=== PATIENT | male | born 1995 | race Caucasian/White ===

== ENCOUNTER 2017-09-10 05:40 | Emergency (ER) | payer OTHER ==
[~2017-09-10] VITALS: Ht 154.9 cm; Wt 63.5 kg
[2017-09-10 05:58] LABS: ABSOLUTE NEUTROPHILS 5.5 thou/uL (1.4-8.2); BASOPHILS 0.6 % (0.0-2.0); EOSINOPHILS 5.9 % (0.0-3.0); HEMATOCRIT 36.1 % (42.0-52.0); HEMOGLOBIN 12.7 gm/dL (14.0-18.0); LYMPHOCYTES 34.6 % (24.0-44.0); MCH 31.7 pg (26.0-34.0); MCHC 35.2 g/dL (28.0-37.0); MCV 90.3 fL (80.0-100.0); MONOCYTES 9.9 % (1.0-8.0); PLATELET COUNT 244 thou/uL (150-400); WBC 11.3 thou/uL (4.0-11.0)
[2017-09-10] MEDS ORDERED: NOHOMEMEDICATIONS (06:00)
[2017-09-10 06:06] LABS: CALCIUM 8.6 mg/dL (8.5-10.1); CREATININE 0.7 mg/dL (0.7-1.3); POTASSIUM 3.9 mmol/L (3.5-5.1)
[2017-09-10 06:10] LABS: PROTIME 10.3 Seconds (9.3-11.4)
[2017-09-10 06:12] LABS: ALBUMIN 3.5 g/dL (3.4-5.0); TOTAL BILIRUBIN 0.5 mg/dL (<0.1-1.0); TOTAL PROTEIN 6.7 g/dL (6.4-8.2)
[2017-09-10] MEDS ORDERED: PROTONIX40 MG PO ×2 (06:43→06:45)
[2017-09-10] MEDS ORDERED: ZANTAC 150MG T150 MG PO ×2 (06:43→06:45)
[2017-09-10] MEDS ORDERED: ONDANSETRON HCL4 M2 PO ×2 (06:44→06:45)
[2017-09-10] MEDS ORDERED: CARAFATE 1 GM TA1 GM PO (07:19)
[2017-09-10 07:29] VITALS: BP 107/64
== END 2017-09-10 07:29 | disposition home or self-care (01) ==
LOC: EDBD 05:40 → ER 05:40
PROVIDERS: Emergency Medicine
DX: K29.71 Gastritis, unspecified, with bleeding (principal)

== ENCOUNTER 2018-06-14 18:08 | Inpatient (IN) | payer OTHER ==
[~2018-06-14] VITALS: Ht 152.4 cm; Wt 73.4 kg
[~2018-06-14 18:08] MED LIST: CARAFATE 1 GM TA1 GM PO; NOHOMEMEDICATIONS; ONDANSETRON HCL4 M2 PO; PROTONIX40 MG PO; ZANTAC 150MG T150 MG PO
[2018-06-14 18:10] VITALS: BP 123/76
[2018-06-14 19:07] LABS: ABSOLUTE NEUTROPHILS 6.5 thou/uL (1.4-8.2); BASOPHILS 0.4 % (0.0-2.0); EOSINOPHILS 1.6 % (0.0-3.0); LYMPHOCYTES 28.4 % (24.0-44.0); MCH 32.1 pg (26.0-34.0); MCHC 35.1 g/dL (28.0-37.0); MCV 91.2 fL (80.0-100.0); MONOCYTES 8.2 % (1.0-8.0); PLATELET COUNT 236 thou/uL (150-400); POLYS 61.4 % (36.0-66.0); RBC 1.91 mil/uL (4.50-6.00); RDW 12.7 % (10.5-14.5); WBC 10.6 thou/uL (4.0-11.0)
[2018-06-14 19:09] LABS: HEMOGLOBIN 6.1 gm/dL (14.0-18.0)
[2018-06-14 19:11] LABS: HEMATOCRIT 17.5 % (42.0-52.0)
[2018-06-14 19:13] LABS: CALCIUM 8.2 mg/dL (8.5-10.1); CREATININE 0.7 mg/dL (0.7-1.3); POTASSIUM 3.9 mmol/L (3.5-5.1)
[2018-06-14 19:18] LABS: TOTAL BILIRUBIN 0.3 mg/dL (<0.1-1.0); TOTAL PROTEIN 5.7 g/dL (6.4-8.2)
[2018-06-14 20:43] VITALS: BP 109/57; BP 109/61; BP 117/60
[2018-06-14 21:51] VITALS: BP 114/61
[2018-06-14 22:06] VITALS: BP 122/68
[2018-06-15] VITALS (26 sets, daily range): BP systolic 89–120; BP diastolic 44–73
[2018-06-15 00:19] LABS: HEMOGLOBIN 6.6 gm/dL (14.0-18.0)
[2018-06-15 00:22] LABS: HEMATOCRIT 18.8 % (42.0-52.0)
--- NOTE | 2018-06-15 07:54 | NUR ---
admit pt arrived to room 458 via cart from ed, being admitted with anemia and a gi bleed. 1 unit prbc's infusing on arrival. completed vss. oriented to room call light system and plan of care sister at bedside helping to interpret pt verbalized undersatnding. protonix gtt infusing at 25cc/hr, gi consulted spoke to last night to round on patient today. 2 iv's in left ac and upper left forearm.
[2018-06-15 09:32] LABS: HEMOGLOBIN 6.4 gm/dL (14.0-18.0)
[2018-06-15 09:33] LABS: HEMATOCRIT 18.3 % (42.0-52.0)
--- NOTE | 2018-06-15 14:47 | NUR ---
Pt was weak and on his bed when received this am shift. Pt does not speak Korean, sister assists in translation. Critical labs called out to DR. Arevalo 6.4, 18.3 hgt, Hct, ordered 2 units of blood. Seen by GI MD, pt EGD schduled early this am. Pt was brought down, for the EGD, blood transfusion initiated at the GI lab. Pt will be transferring to the ICU room 237.
--- NOTE | 2018-06-15 15:33 | NUR ---
PT TRANSFER FROM 4W THEN GI LAB. FIRST UNIT OF PRBC HANGNING, STILL NEEDS [address] THAKUR SPOKE WITH PT, FAMILY AND IRVING RN TO TRANSLATE. WAITING FOR DR ENGLAND (CONSULT SURGERY) TO COME SEE PT. KEEP NPO FOR NOW. PROTONIX GTT INFUSING. WAITING FOR BLOOD BANK AND 4W NURSE TO CALL BACK FOR REPORT.
[2018-06-15 19:17] LABS: HEMATOCRIT 26.2 % (42.0-52.0)
[2018-06-15 19:22] LABS: HEMOGLOBIN 9.1 gm/dL (14.0-18.0)
[2018-06-16] VITALS (20 sets, daily range): BP systolic 91–125; BP diastolic 41–61
[2018-06-16 00:25] LABS: HEMATOCRIT 26.3 % (42.0-52.0); HEMOGLOBIN 9.1 gm/dL (14.0-18.0)
[2018-06-16 03:33] LABS: URINE CLARITY CLEAR; URINE COLOR YELLOW
[2018-06-16 03:34] LABS: URINE BILIRUBIN NEGATIVE (Negative); URINE BLOOD NEGATIVE (Negative); URINE GLUCOSE-RANDOM* NEGATIVE (Negative); URINE KETONES TRACE (Negative); URINE LEUKOCYTES-REFLEX NEGATIVE (Negative); URINE NITRITE-REFLEX NEGATIVE (Negative); URINE PROTEIN (DIPSTICK) NEGATIVE (Negative); URINE SPECIFIC GRAVITY 1.015 (1.005-1.035); URINE UROBILINOGEN 0.2 E.U./dl (0.2-1.0)
[2018-06-16 05:27] LABS: HEMATOCRIT 25.1 % (42.0-52.0); HEMOGLOBIN 8.7 gm/dL (14.0-18.0); MCH 30.7 pg (26.0-34.0); MCHC 34.5 g/dL (28.0-37.0); MCV 89.1 fL (80.0-100.0); RBC 2.82 mil/uL (4.50-6.00); RDW 14.7 % (10.5-14.5); WBC 11.3 thou/uL (4.0-11.0)
--- NOTE | 2018-06-16 05:35 | NUR ---
PT REMAINS STABLE IN THIS SHIFT. DENIES OF ANY GI DISCOMFORT. NO S/SX OF ANY GI BLEED INDICATES. VSS. LAST HB WAS 9.1. CONTINUE PROTONIX GTT. FAMILY AT BEDSIDE. CONTINUE PROGRESSING TOWARD GOALS.
[2018-06-16 05:41] LABS: ALBUMIN 2.7 g/dL (3.4-5.0); CREATININE 0.7 mg/dL (0.7-1.3); POTASSIUM 3.5 mmol/L (3.5-5.1); TOTAL BILIRUBIN 1.2 mg/dL (<0.1-1.0); TOTAL PROTEIN 5.3 g/dL (6.4-8.2)
--- NOTE | 2018-06-16 06:22 | NUR ---
Pt remains on BIPAP this am. O2 sat 100 on 40%FiO2. BIPAP at times indicates low MV and TV. Sleep apnea noted. Not much secretion via trach when assisted with suctioning. He is very anxious and report he is in a lot of pain. Ativan and Fentanyl were given as chart per EMAR. HR in 40's 50 while he is sleeping. He is asymptomatic. BP and rhythms are stable. He is very noncompliance with wearing C-collar. He wore it only few hour and removed it by himself. He is awared of risks and benefits when I assessed. Turn q 2 hrs. Dressing on sacral remain D/C/I. Coninue to monitor any changes.
--- NOTE | 2018-06-16 18:44 | NUR ---
PATIENT ALERT AND ORIENTED X4, SAMI SPEAKING ONLY. SINUS RHYTHM ON BOX PACKER. ON ROOM AIR, NO COMPLANTS OF RESPIRATORY DISTRESS. TOLERATING CLEAR LIQUID DIET. PROTONIX DRIP AND MAINTENANCE FLUIDS FOR COMFORT. UP INDEPENDENTLY. NO COMPLAINTS OF PAIN. REPORT CALLED TO BRIAN DOE TRANSFERRED TO CCU. FAMILY PRESENT AT THE BEDSIDE.
[2018-06-17 03:43] VITALS: BP 114/58
[2018-06-17 04:28] LABS: MCH 31.1 pg (26.0-34.0); MCHC 34.7 g/dL (28.0-37.0); MCV 89.8 fL (80.0-100.0); RBC 2.9 mil/uL (4.50-6.00); RDW 14.7 % (10.5-14.5); WBC 8.9 thou/uL (4.0-11.0)
--- NOTE | 2018-06-17 04:39 | NUR ---
PT ALERT AND ORIENTED. AZERI SPEAKING. FAMILY AT BEDSIDE FOR EVENING , HELPED WITH SOME TRANSLATION. ON PROTONIX DRIP AND IV FLUIDS. NO C/O PAIN, CHEST PAIN, OR RESP DISTRESS. UP INDEPENDENTLY. ON CLEAR LIQUIDS. NO BOWEL MOVEMENT YET.
[2018-06-17 07:41] VITALS: BP 105/54
[2018-06-17 11:14] VITALS: BP 109/56
[2018-06-17 12:00] LABS: HEMATOCRIT 28.9 % (42.0-52.0); HEMOGLOBIN 10.3 gm/dL (14.0-18.0)
--- NOTE | 2018-06-17 15:41 | NUR ---
Patient admits with Gi Bleed, advancing diet today and possible dc in am. Sp with patient and family at bedside. patient resides in independent home with family. He cont to work. Gave [facility] information. [facility] to assist with prescriptions at dc. cont to follow
--- NOTE | 2018-06-17 18:12 | NUR ---
ASSESSMENT DOCUMENTED. VSS. DENIES HAVING PAIN OR DISCOMFORT. SEEN BY GI. NSR ON TELI. WILL CONTINUE TO MONITOR.
[2018-06-17 19:25] VITALS: BP 100/60
--- NOTE | 2018-06-18 03:42 | NUR ---
ASSUMED CARE AT 1900. PT ALERT AND ORIENTED. NO C/O CHEST PAIN OR SOB. ON ABX FOR H.PYLORI. POSSIBLE DC TODAY. ON PROTONIX DRIP. WILL CONTINUE TO FOLLOW POC.
[2018-06-18 05:27] VITALS: BP 90/98
[2018-06-18 07:08] VITALS: BP 99/62
--- NOTE | 2018-06-18 11:12 | HC ---
[facility] [place] [address] CONSULTATION Name: ASHIA COREAS Room #: 214-P ADM IN M.R.#: [id number] Admission: 06/14/18 Attend Phys: Dina Jiménez MD Discharge: Date of : 89 Report #: [id number] THIS REPORT FOR: //name// CC: ADRIANNE physician/PCP POLLY Brewer DATE OF SERVICE: 06/15/2018 HISTORY OF PRESENT ILLNESS: The patient is a 23-year-old male who is non-German speaking; however, his family member is present as well as a nurse and able to translate. Apparently, he has had episode of hematemesis on , had several further episodes of nausea and vomiting without blood. Also, has been passing dark red stools with clots. He does complain of generalized abdominal pain, but not severe. No fevers or chills. He has been complaining of generalized weakness and shortness of breath on exertion. He is on no medications. He denies any NSAID use recently. Apparently, had similar episode approximately 9 months ago, was seen in the Emergency Room and will be given Zantac, Protonix and Carafate, took it for approximately a week and stopped the medication. On admission, his hemoglobin was 6.1. He was given 1 unit of packed cells, but today's hemoglobin is only 6.4 despite 1 unit. He has had no further bleeding overnight. He is on a Protonix drip at this time. PAST MEDICAL HISTORY: Possible previous GI bleed, otherwise unremarkable. MEDICATIONS AT HOME: None. ALLERGIES: No known drug allergies. FAMILY HISTORY: Negative for colon cancer. SOCIAL HISTORY: He does smoke. He does consume alcohol occasionally. REVIEW OF SYSTEMS: As per HPI. PHYSICAL EXAMINATION: VITAL SIGNS: Temperature is 98.5, pulse 93, blood pressure is 105/49, respiratory rate 17. GENERAL: He is alert and oriented x 3. No acute distress. HEENT: Sclerae nonicteric. Oropharynx clear. NECK: Supple. CARDIOVASCULAR: Regular rate and rhythm. CHEST: Clear to auscultation bilaterally. ABDOMEN: Soft. He is nontender, nondistended, normoactive bowel sounds. EXTREMITIES: No cyanosis, clubbing or edema. [address] [address] CONSULTATION Name: ASHIA COREAS Room #: 214-[facility] IN M.R.#: [id number] Admission: 06/14/18 Attend Phys: Dina Jiménez MD Discharge: Date of : 89 Report #: [id number] LABORATORY DATA: This is from yesterday: Sodium 140, potassium 3.9, chloride 105, bicarbonate 28, BUN 21, creatinine is 0.7, glucose 131, AST 14, lipase 103, total bilirubin 0.3, calcium 8.2, alkaline phosphatase 49, ALT 20, total protein 5.7, albumin 3.0. INR 1.0. WBC is 10.6, hemoglobin most after transfusion yesterday is 6.4 today, MCV 91.2, platelet count is 236. Sed rate 20. H. pylori IgG is pending. ASSESSMENT AND PLAN: Anemia, gastrointestinal bleed. The patient with episode of hematemesis on . He has also been passing maroon-colored stools, suspect possible upper source. We will proceed with an upper endoscopy today. The patient has been ordered for 2 more units of packed cells today. Agree with PPI drip, which the patient is currently on. Continue to monitor hemoglobin closely. I will make further recommendations after upper endoscopy. If it is negative, we will likely need to proceed with a colonoscopy tomorrow. Thank you for allowing me to participate in his care. <ELECTRONICALLY SIGNED> By: Jer Grace MD 06/18/18 1112 [id number] Jer Grace MD /nt
--- NOTE | 2018-06-18 11:12 | P ---
[facility] [place] [address] PROCEDURE REPORT Name: ASHIA COREAS Room #: 214-P ADM IN M.R.#: [id number] Admission: 06/14/18 Attend Phys: Dina Jiménez MD Discharge: Date of : 89 Report #: [id number] THIS REPORT FOR: //name// CC: ADRIANNE physician/PCP Alfred Joseph MD DATE OF SERVICE: 06/15/2018 PROCEDURE PERFORMED: Upper endoscopy with bleeding control. HISTORY OF PRESENT ILLNESS: The patient is a 23-year-old male who was admitted through the Emergency Room yesterday with episode of hematemesis last followed by maroon-colored stools. The patient had significant anemia on admission with hemoglobin of 6.1. He was given 1 unit of packed cells. This only increased his hemoglobin to 6.4 today. No bloody stools this morning. He has been complaining of abdominal pain. No history of NSAID use. DESCRIPTION OF PROCEDURE: The risks and benefits of the procedure were explained to the patient; those risks including but not limited to bleeding, perforation and the risk of sedation. He understood these risks and gave informed consent. Conscious sedation was given using fentanyl and Versed. Next, using a standard Olympus upper endoscope, the scope was placed in the patient's mouth and advanced under direct vision through the esophagus, stomach and into the second portion of the duodenum. The esophagus was normal throughout. Upon entering the stomach, some bright red blood was noted in the fundus. No obvious bleeding source was seen in the gastric mucosa. There was blood exiting the pylorus. I was able to advance the scope into the duodenal bulb, at which point, bright red blood was noted. A duodenal bulb ulcer was noted and had an active pulsatile arterial bleed. I proceeded with injecting the base of the ulcer with epinephrine, followed by cautery later. The patient continued to have oozing, although it slowed significantly. I was able to later place one Endoclip. It was difficult, however, because the bleeding was coming from a deep type ulcer. The ulcer itself was approximately 1 cm in diameter. We worked on active bleeding for at least 30-40 minutes. Finally, after multiple injections of epinephrine and cautery, it appears that the bleeding has stopped at this point. The second portion of the duodenum was normal. At this point, the scope was then withdrawn and the procedure terminated. The patient tolerated the procedure well, other than having abdominal pain in the recovery room. IMPRESSION: 1. Actively bleeding duodenal bulb ulcer as described above, status post epinephrine, cautery and Endoclip placement; difficult to get the bleeding stopped, but eventually it did stop. [address] [address] PROCEDURE REPORT Name: ASHIA COREAS Room #: 214-P [facility] IN M.R.#: [id number] Admission: 06/14/18 Attend Phys: Dina Jiménez MD Discharge: Date of : 89 Report #: [id number] 2. Otherwise, normal upper endoscopy. RECOMMENDATIONS: 1. We will transfer the patient to the ICU for further monitoring. 2. The patient is to have 2 units of packed cells today, that have been ordered. 3. Continue PPI drip. 4. Continue n.p.o. 5. General Surgery consult. If bleeding occurs again, the patient may need IR or surgical intervention. Thank you for allowing me to participate in his care. <ELECTRONICALLY SIGNED> By: Jer Grace MD 06/18/18 1112 1409 [id number] Jer Grace MD /nt
[2018-06-18] MEDS ORDERED: AMOXICILLIN 50500 M1 PO (12:13)
[2018-06-18] MEDS ORDERED: CLARITHROMYCIN250 M2 PO (12:13)
[2018-06-18] MEDS ORDERED: PANTOPRAZOLE SO40 M1 PO (12:13)
[2018-06-18 13:13] VITALS: BP 99/62
--- NOTE | 2018-06-18 14:54 | NUR ---
ASSESSMENT DOCUMENTED. PT ALERT AND ORIENTED. VSS. DENIED HAVING PAIN OR DISCOMFORT. SEEN BY DR JOHNSTON AND DR. SMITH. ORDERS GIVEN TO DISCHARGE PT TO HOME. DISCHARGE INSTRUCTIONS GIVEN TO PT AND THE SISTER.
[2018-06-18 15:11] LABS: HGB SOLUBILITY Negative (Negative)
--- NOTE | 2018-06-18 15:30 | NUR ---
PATIENT TO DC HOME TODAY. [facility] ASSISTED WITH VOUCHING FOR MEDICATIONS IN APPROX AMOUNT OF $40.00
== END 2018-06-18 14:55 | disposition home or self-care (01) | DRG 378 ==
LOC: ER 18:08 → ICU 19:56 → EROBS 19:56 → 4W 21:52 → ICU 06-15 15:14 → 2N 06-16 17:59
PROVIDERS: Internal Medicine; Nurse Practitioner Acute Care; Specialist; Student in an Organized Health Care Education/Training Program; ADMIT Hospitalist
PROC: 0W3P8ZZ Control Bleeding in Gastrointestinal Tract, Via Natural or Artificial Opening Endoscopic (ICD-10-PCS; principal; 2018-06-15)
PROC: 3E0G8GC Introduction of Other Therapeutic Substance into Upper GI, Via Natural or Artificial Opening Endoscopic (ICD-10-PCS; principal; 2018-06-15)
PROC: 30233N1 Transfusion of Nonautologous Red Blood Cells into Peripheral Vein, Percutaneous Approach (ICD-10-PCS; principal; 2018-06-15)
DX: K26.4 Chronic or unspecified duodenal ulcer with hemorrhage (principal); D62 Acute posthemorrhagic anemia; B96.81 Helicobacter pylori [H. pylori] as the cause of diseases classified elsewhere; F03.90 Unspecified dementia, unspecified severity, without behavioral disturbance, psychotic disturbance, mood disturbance, and anxiety; F17.210 Nicotine dependence, cigarettes, uncomplicated; Z71.6 Tobacco abuse counseling
CPT/HCPCS: 10045; 10078; 10081; 65090; 70005

== ENCOUNTER 2019-01-24 19:17 | Emergency (ER) | payer OTHER ==
[~2019-01-24] VITALS: Ht 152.4 cm; Wt 68.5 kg
[~2019-01-24 19:17] MED LIST changes: +AMOXICILLIN 50500 M1 PO; +CLARITHROMYCIN250 M2 PO; +PANTOPRAZOLE SO40 M1 PO
[2019-01-24 19:59] LABS: ABSOLUTE NEUTROPHILS 4.6 thou/uL (1.4-8.2); BASOPHILS 0.7 % (0.0-2.0); EOSINOPHILS 3.6 % (0.0-3.0); HEMATOCRIT 43.4 % (42.0-52.0); HEMOGLOBIN 15.2 gm/dL (14.0-18.0); LYMPHOCYTES 35.9 % (24.0-44.0); MCH 31.8 pg (26.0-34.0); MCHC 34.9 g/dL (28.0-37.0); MCV 90.9 fL (80.0-100.0); MONOCYTES 9.9 % (1.0-8.0); PLATELET COUNT 253 thou/uL (150-400); POLYS 49.9 % (36.0-66.0); RBC 4.77 mil/uL (4.50-6.00); RDW 14.1 % (10.5-14.5); WBC 9.1 thou/uL (4.0-11.0)
[2019-01-24 20:17] LABS: CALCIUM 9.2 mg/dL (8.5-10.1); CREATININE 0.8 mg/dL (0.7-1.3); POTASSIUM 3.6 mmol/L (3.5-5.1)
[2019-01-24 20:23] LABS: ALBUMIN 4.3 g/dL (3.4-5.0); TOTAL BILIRUBIN 0.5 mg/dL (<0.1-1.0); TOTAL PROTEIN 8.3 g/dL (6.4-8.2)
[2019-01-24 20:42] LABS: URINE BILIRUBIN NEGATIVE (Negative); URINE BLOOD NEGATIVE (Negative); URINE CLARITY CLEAR; URINE COLOR YELLOW; URINE GLUCOSE-RANDOM* NEGATIVE (Negative); URINE KETONES NEGATIVE (Negative); URINE LEUKOCYTES-REFLEX NEGATIVE (Negative); URINE NITRITE-REFLEX NEGATIVE (Negative); URINE PROTEIN (DIPSTICK) NEGATIVE (Negative); URINE UROBILINOGEN 0.2 E.U./dl (0.2-1.0)
[2019-01-24] MEDS ORDERED: OMEPRAZOLE 20 M20 M1 PO (20:48)
[2019-01-24 20:59] VITALS: BP 129/79
--- NOTE | 2019-01-25 11:43 | EKG ---
[address] [address] ELECTROCARDIOGRAM REPORT Name: LYUDMILA,ASHIA [id number] Admission: 01/24/19 Attend Phys: Discharge: 01/24/19 Date of : 89 Report #: [id number] THIS REPORT FOR: //name// [facility] ED Test Date: 2019-01-24 Test Time: 19:47:24 Pat Name: ASHIA COREAS Department: Room: Gender: Ditch Worker: MAYELA : 1995 Requested By: Jojo Cornejo Order Number: [id number] MD: Geraldo Thomas Measurements Intervals [place] Rate: 71 P: 30 NC: 150 QRS: -17 QRSD: 95 T: 18 QT: 372 QTc: 405 Interpretive Statements Sinus rhythm Borderline left axis deviation No previous ECG available for comparison Electronically Signed On 01-25-2019 11:43:27 CDT by Geraldo Thomas [email or web address] <ELECTRONICALLY SIGNED> By: Geraldo Thomas MD 01/25/19 1143 1947 46 MD BALDOMERO Mortensen
== END 2019-01-24 21:06 | disposition home or self-care (01) ==
LOC: ER 19:17
PROVIDERS: Physician Assistant
DX: K29.70 Gastritis, unspecified, without bleeding (principal)

== ENCOUNTER 2019-04-20 10:39 | Emergency (ER) | payer OTHER ==
[~2019-04-20] VITALS: Ht 172.7 cm; Wt 86.2 kg
[~2019-04-20 10:39] MED LIST changes: +OMEPRAZOLE 20 M20 M1 PO
[2019-04-20] MEDS ORDERED: LIDOCAINE PAIN1 EACH TRANSDERM (11:52)
[2019-04-20] MEDS ORDERED: TRAMADOL 50 MG50 MG PO (11:52)
[2019-04-20 12:10] VITALS: BP 121/74
== END 2019-04-20 12:11 | disposition home or self-care (01) ==
LOC: ER 10:39
DX: M54.5 Low back pain (principal); W11.XXXA Fall on and from ladder, initial encounter; Y93.89 Activity, other specified; Y92.89 Other specified places as the place of occurrence of the external cause; Y99.8 Other external cause status